=== PATIENT | female | born 1985 | race Caucasian/White ===

== ENCOUNTER 2017-01-26 22:31 | Emergency (ER) | payer BC ==
--- NOTE | 2017-01-27 02:05 | ERNOTE ---
Integumentary HPI - Narrative Date of Service: 01/27/17 - General Time Seen by Provider: 01/27/17 02:03 Source: patient Exam Limitations: no limitations - Immun/Allergies/Home Medications Immunizations: IMMUNIZATION HX Immunizations Up to Date Yes History of Influenza Vaccine No Hx Pneumococcal Vaccination No Allergies/Adverse Reactions: Allergies Allergy/AdvReac Type Severity Reaction Status Date / Time No Known Allergies Allergy Unverified 03/24/13 00:24 Home Medications: HOME MEDICATIONS Acetaminophen with Codeine [Tylenol with Codeine #3 Tablet] 1 - 2 tab PO Q6H PRN #14 tab 01/27/17 [Last Taken Unknown] Sulfamethoxazole/Trimethoprim [Bactrim Ds] 1 tab PO BID #20 tab 01/27/17 [Last Taken Unknown] - History of Present Illness Narrative: PT WITH RED HOT TENDER ABSCESS DEVELOPING TO HER RIGHT INNER UPPER THIGH FOR THE PAST 2-3 DAYS . IT IS BECOMING MORE AND MORE TENDER. SHE HAD ONE IN THIS AREA ONCE BEFORE. SHE DENIES ANY UNDERLYING ILLNESS. NO FEVER. Review of Systems - Review of Systems Constitutional: Present: See HPI Skin: Present: See HPI, other - ABCESS OF R. THIGH. Endocrine: Present: no symptoms reported Psych: Present: no symptoms reported All Other Systems: All systems neg except as marked - Patient's Past Medical History Patient History - Medical: No pertinent hx Patient History - Cardiac/Respiratory: No pertinent hx Patient History - Cancer: No Hx of Cancer Patient History - Surgical Procedures: No surgical history Patient History - Other: None - Social History Living Situations: home Abuse History: No History of abuse Psych History: No pertinent hx Smoking Status: Current every day smoker Patient requests Smoking Cessation Consult: No Initiate information on Smoking Cessation: No Alcohol Use: none Drug Use: none - Immunizations Immunizations Up to Date: Yes Hx Pneumococcal Vaccination: No History of Influenza Vaccine: No Physical Exam - Physical Exam General Appearance: Present: wd/wn, alert, mild distress - VSS Extremity Exam: Present: normal except - - PT HAS 7 CM DIAMETER RAISED RED TENDER ABSCESS TO PROXIMAL MEDIAL THIGH THAT IS WARM TO TOUCH AND SURROUNDED BY SOFT TISSSUE ERYTHEMA. THERE IS NO DRAINAGE BUT THERE IS A CENTRAL POINT OF SWELLING THAT IS SOFT AND FLUCTUANT UNDERNEATH ED Progress - Vital Signs Vital Signs: Vital Signs 01/26/17 22:35 Temperature 36.9 C Pulse Rate 96 Respiratory 18 Rate Blood Pressure 127/84 O2 Sat by Pulse 98 Oximetry - Progress/Reassessment Chief Complaint: Abscess Procedures Right Upper Medial Thigh Anesthesia: 2% Lidocaine, Local I & D Prep: betadine prep Blade Size: 11 Findings and Actions: purulent drainage moderate, probed/breakup loculation, packed with guaze, cultures obtained Complications: Pt jase procedure well - WELL COULD BE EXPECTED IN THAT AREA IS INFLAMED AND GOLF RANGE ATTENDANT. Departure Clinical Impression: Abscess - Departure Disposition: Home Follow Up Needed Condition: Good Instructions: Abscess, [id number] Additional Instructions: WARM COMPRESSES TO SORE AREA FOR 30 MINS EVERY 4 HOURS. RECHECK WITH YOUR FAMILY DOCTOR IN 2 DAYS TO CONSIDER WITHDRAWING SOME OF THE PACKING. Prescriptions: Acetaminophen with Codeine [Tylenol with Codeine #3 Tablet] 1 - 2 tab PO Q6H PRN #14 tab PRN Reason: Pain Sulfamethoxazole/Trimethoprim [Bactrim Ds] 1 tab PO BID #20 tab
[2017-01-27] MEDS ORDERED: SULFAMETHOXAZOLE/TRIMETHOPRIM 1 TAB TABLET PO ONE (02:50)
[2017-01-27] MEDS ORDERED: SULFAMETHOXAZOLE/TRIMETHOPRIM 1 TAB TABLET ONE (02:53)
[2017-01-27] MEDS ORDERED: ACETAMINOPHEN WITH CODEINE 1 EACH TABLET ONE (02:57)
[2017-01-27] MEDS ORDERED: IBUPROFEN 600 MG TABLET ONE (02:57)
[2017-01-27] MEDS ORDERED: IBUPROFEN 600 MG TABLET PO ONE (02:58)
[2017-01-27] MEDS ORDERED: ACETAMINOPHEN WITH CODEINE 1 EACH TABLET PO ONE (02:59)
[2017-01-27 03:14] VITALS: BP 125/69
== END 2017-01-27 03:15 | disposition home or self-care (01) ==
LOC: ER 22:31 → MERGE 22:31 → ER 01-27 03:15
PROC: 0H9HXZZ Drainage of Right Upper Leg Skin, External Approach (ICD-10-PCS; principal; 2017-01-26)
DX: L02.415 Cutaneous abscess of right lower limb (principal); Z72.0 Tobacco use